=== PATIENT | female | born 1970 | race American Indian/Alaskan Native ===

== ENCOUNTER 2016-08-06 14:00 | Outpatient (CLI) | payer OTHER ==
--- NOTE | 2016-08-06 16:04 | XRay Report ---
CERVICAL SPINE SERIES THREE VIEWS: 08/06/16 14:00:00 CLINICAL: Neck pain. FINDINGS: Straightening of C-spine. Normal vertebral body height, alignment and disc spaces. Mild degenerative change with small osteophytes at C5-6. No fracture. Normal odontoid and C1. The facet joints are normal. Normal soft tissues. IMPRESSION: Mild degenerative disc disease at C5-6.
== END 2016-08-06 14:01 | disposition home or self-care (01) ==
LOC: SPVIMAG 14:00
DX: M50.322 Other cervical disc degeneration at C5-C6 level (principal); M47.892 Other spondylosis, cervical region; M25.78 Osteophyte, vertebrae
CPT/HCPCS: 72040

== ENCOUNTER 2016-12-14 14:46 | Outpatient (CLI) | payer OTHER ==
--- NOTE | 2016-12-14 15:54 | XRay Report ---
BILATERAL HIP RADIOGRAPHS WITH PELVIS INDICATION: Hip pain. COMPARISON: None similar. FINDINGS: An AP pelvic radiograph with frog-leg projection of bilateral hips demonstrate normal femoral head contours bilaterally. Imaged bilateral SI and hip joints appear intact. Normal imaged lower lumbar spine. Nonobstructive bowel gas pattern. CONCLUSION: No acute radiographic abnormality. Thank you for the opportunity to participate in this patient's care.
--- NOTE | 2016-12-14 15:55 | XRay Report ---
LUMBAR SPINE RADIOGRAPHS: INDICATION: Back pain. COMPARISON: None similar. FINDINGS: AP and lateral lumbar spine radiographs demonstrate preserved vertebral body stature, alignment and disc heights. Nonobstructive bowel gas pattern. Normal bilateral SI joints. CONCLUSION: No acute lumbar radiographic abnormality. Thank you for the opportunity to participate in this patient's care.
== END 2016-12-14 14:47 | disposition home or self-care (01) ==
LOC: SPVIMAG 14:46
DX: M54.5 Low back pain (principal); M25.551 Pain in right hip; M25.552 Pain in left hip
CPT/HCPCS: 72100; 73521

== ENCOUNTER 2017-03-25 10:04 | Outpatient (CLI) | payer OTHER ==
--- NOTE | 2017-03-25 11:48 | Mammography Report ---
BILATERAL MAMMOGRAM: FINDINGS: The breast tissue is heterogeneously dense, which could obscure detection of small masses (approximately 50%-75% glandular). No mass, distortion, suspicious calcification, or skin change is seen. When compared to prior exams in 2016 and 2015 there are no significant changes identified. CAD was utilized. IMPRESSION: Negative mammogram. There is no mammographic evidence of malignancy. RECOMMENDATION: Follow-up per ACS guidelines. BI-RADS CATEGORY: 1 = Negative ACR BI-RADS MAMMOGRAPHIC CODES: 0 = Needs additional imaging evaluation; 1 = Negative; 2 = Benign; 3 = Probably benign; 4 = Suspicious; 5 = Malignant; 6 = Known biopsy-proven malignancy COMMENT: 1. Dense breast tissue, i.e., adenosis, fibrocystic changes, etc., may obscure an underlying neoplasm. 2. Approximately 10% of cancers are not detected with mammography. 3. A negative mammography report should not delay biopsy if a clinically suspicious mass is present. COMMENT: Patient follow-up letters are generated in [employer].
== END 2017-03-25 10:05 | disposition home or self-care (01) ==
LOC: SPVWC 10:04
DX: Z12.31 Encounter for screening mammogram for malignant neoplasm of breast (principal)
CPT/HCPCS: 77067; G0202

== ENCOUNTER 2018-03-27 08:17 | Outpatient (CLI) | payer OTHER ==
--- NOTE | 2018-03-27 13:29 | Mammography Report ---
BILATERAL DIGITAL SCREENING MAMMOGRAM with CAD: 03/27/18 08:17:00 CLINICAL: Routine screening. COMPARISON:03/25/17 FINDINGS: The breasts are heterogeneously dense, which may obscure small masses. No mass, architectural distortion or suspicious calcifications. IMPRESSION: No mammographic evidence of malignancy. BI-RADS CATEGORY: 1 - - Negative RECOMMENDATION: Routine mammographic screening in one year. COMMENT: Patient follow-up letters are generated by our [employer] application.
== END 2018-03-27 08:18 | disposition home or self-care (01) ==
LOC: SPVWC 08:17
DX: Z12.31 Encounter for screening mammogram for malignant neoplasm of breast (principal)
CPT/HCPCS: 77067

== ENCOUNTER 2019-04-13 09:24 | Outpatient (CLI) | payer OTHER ==
--- NOTE | 2019-04-16 09:32 | Mammography Report ---
DIGITAL SCREENING MAMMOGRAM WITH CAD, 04/13/2019 INDICATION: Routine screening mammography. TECHNIQUE: Digital bilateral 2D mammography was obtained in the craniocaudal and mediolateral obliq ue projections. This examination was interpreted with the benefit of Computer-Aided Detection analysi s. COMPARISON: 02/09/2016 and 03/27/2018 FINDINGS: Breast Density: The breasts are heterogeneously dense, which may obscure small masses. There is no evidence of dominant mass, suspicious calcifications or architectural distortion in eithe r breast. IMPRESSION: No mammographic evidence of malignancy. Follow up recommendation: Routine yearly BI-RADS Category 1: Negative. A "normal" or negative report should not discourage follow up or biopsy of a clinically significant f inding. A written summary of these findings will be mailed to the patient. The patient will be entered into a mammography reporting system which will generate a reminder letter for the patient's next appointmen t at the appropriate interval. The [employer] recommends yearly mammograms starting at age 40 and continuing as l jenni as a woman is in good health. Breast MRI is recommended for women with an approximate 20-25% or greater lifetime risk of breast cancer, including women with a strong family history of breast or ova josiah cancer or who have been treated for Hodgkin's disease. Signer Name: Aden Washburn MD Signed: 04/16/2019 9:27 AM Workstation Name: [id number]
== END 2019-04-13 09:25 | disposition home or self-care (01) ==
LOC: SPVWC 09:24
PROVIDERS: ATTEND Obstetrics & Gynecology
DX: Z12.31 Encounter for screening mammogram for malignant neoplasm of breast (principal)
CPT/HCPCS: 77067